=== PATIENT | male | born 1980 | race African-American/Black ===

== ENCOUNTER 2018-03-31 08:35 | Emergency (ER) | payer OTHER ==
[2018-03-31 08:42] VITALS: BP 129/70; PULSE 79; RESP 18; TEMP 98.3
[2018-03-31] MEDS ORDERED: TOPICAL SKIN ADHESIVE 1 EACH AMP TOPICAL ONE (08:47)
--- NOTE | 2018-03-31 08:55 | ED ---
General Adult HPI - General Chief complaint: Wound/Laceration Stated complaint: left hand lac Time Seen by Provider: 03/31/18 08:42 Source: patient, RN notes reviewed Mode of arrival: ambulatory Limitations: no limitations - History of Present Illness Initial comments: Patient 38-year-old male presenting to the emergency room today with a chief complaint of a laceration to the left index finger. He does admit that he was working and he was breaking up a piece of glass piece accidentally went through his gloves and cut his left index. He states tetanus is up-to-date. States he has full range of motion. Patient states came to hospital because he wasn't sure if it needed stitches. Patient denies any recent fever, chills, shortness of breath, chest pain, back pain, abdominal pain, nausea or vomiting, numbness or tingling, headaches or visual changes, or any other complaints. - Related Data Allergies Allergy/AdvReac Type Severity Reaction Status Date / Time No Known Allergies Allergy Verified 03/31/18 08:42 Review of Systems ROS Statement: Those systems with pertinent positive or pertinent negative responses have been documented in the HPI. ROS Other: All systems not noted in ROS Statement are negative. Past Medical History Past Medical History: No Reported History History of Any Multi-Drug Resistant Organisms: None Reported Past Surgical History: No Surgical Hx Reported Past Psychological History: No Psychological Hx Reported Smoking Status: Current every day smoker Past Alcohol Use History: Rare Past Drug Use History: Marijuana General Exam - General Exam Comments Initial Comments: General: The patient is awake and alert, in no distress, and does not appear acutely ill. Neck: The neck is supple, there is no tenderness or JVD. Cardiovascular: There is a regular rate and rhythm. No murmur, rub or gallop is appreciated. Respiratory: Lungs are clear to auscultation, respirations are non-labored, breath sounds are equal. No wheezes, stridor, rales, or rhonchi. Musculoskeletal: Patient does have full range of motion. 1 cm laceration running angle to the lateral aspect of the MCP joint of second digit. Strength 5/5. Sensation intact. Radial pulses 2+. Neurological: A&O x 3. CN II-XII intact, There are no obvious motor or sensory deficits. Coordination appears grossly intact. Speech is normal. Skin: 1 cm linear laceration running angle to the left index finger with no active bleeding. No deep tissue involvement. Psychiatric: Normal mood and affect. Limitations: no limitations Course Vital Signs 03/31/18 08:37 Temperature 98.3 F Pulse Rate 79 Respiratory 18 Rate Blood Pressure 129/70 O2 Sat by Pulse 98 Oximetry Procedures - Procedures Initial comment: 1 cm linear laceration to the left index finger. Area was cleaned with saline. Wound was inspected no deep tissue involvement. Area was approximated and closed with Dermabond. Medical Decision Making - Medical Decision Making Options were discussed with patient about x-ray has declined. They does have superficial cut to the left index finger at the second digit of the MCP joint laterally. His strength 5/5. Options were discussed about sutures versus glue. Patient states he would like the area. Patient was watched for any signs of infection return for any other concerns. Disposition Clinical Impression: Laceration Disposition: HOME SELF-CARE Condition: Good Instructions: Laceration (ED) Additional Instructions: Please allow the glue to fall off on its own over the next 2-5 days. Please watch for any signs of infection which may include increased pain, redness, fever or chills. Please return to emergency room for any signs of infection or any other concerns Is patient prescribed a controlled substance at d/c from ED?: No Referrals: None,Stated [Primary Care Provider] - 1-2 days Time of Disposition: 08:55
== END 2018-03-31 09:09 | disposition home or self-care (01) ==
LOC: EC 08:35
DX: S61.211A Laceration without foreign body of left index finger without damage to nail, initial encounter (principal); F17.200 Nicotine dependence, unspecified, uncomplicated; Z53.29 Procedure and treatment not carried out because of patient's decision for other reasons; W25.XXXA Contact with sharp glass, initial encounter; Y93.89 Activity, other specified
CPT/HCPCS: 12001; 99282